=== PATIENT | female | born 1970 | race Caucasian/White ===

== ENCOUNTER 2020-06-15 10:37 | Emergency (ER) | payer OTHER, SELFPAY ==
[2020-06-15 10:42] VITALS: BP 203/98; PULSE 75; RESP 17; TEMP 36.1; O2SAT 98
--- NOTE | 2020-06-15 10:45 | ECG_ITS ---
Measurements Intervals [place] Rate: 78 P: 62 [place]: 138 QRS: 21 QRSD: 109 T: 24 QT: 377 QTc: 430 Interpretive Statements SINUS RHYTHM DELAYED PRECORDIAL R/S TRANSITION BASELINE ARTIFACT- I, II, III, AVR, AVL, AVF BORDERLINE ECG Electronically Signed On 06-15-2020 12:57:52 CDT by Bridger Longo D.O.
[2020-06-15 11:01] VITALS: BP 144/76; PULSE 71; RESP 13; O2SAT 99
--- NOTE | 2020-06-15 11:39 | ED.GENADULT ---
HPI - General Adult General Chief complaint: Recheck/Abnormal Lab/Rx Stated complaint: htn Time Seen by Provider: 06/15/20 10:41 Source: patient Mode of arrival: ambulatory Limitations: no limitations History of Present Illness HPI narrative: Patient is a 49-year-old female who presents from her gynecological visit where she was found to have an elevated blood pressure patient notes that she has typically had these in doctors offices or similar settings and has been monitoring at home every several days and that it typically runs in the 05/03/1937 systolic and 80 diastolic range. Patient has not seen primary care for this. Patient denies any symptoms or other concerns and presents in no distress and does not appear uncomfortable Related Data Home Medications Medication Instructions Recorded Confirmed ferrous sulfate mg 06/15/20 Allergies Allergy/AdvReac Type Severity Reaction Status Date / Time No Known Allergies Allergy Verified 06/15/20 10:45 Review of Systems Review of Systems: All systems reviewed & are unremarkable except as noted in HPI and below PMFSH Past Medical History Medical History (Updated 06/15/20 @ 11:43 by Ernst Leiva PA-C) Obese Family History Family History (Updated 11/28/13 @ 07:13 by DOCTOR UNKNOWN) Father Hypertension Social History Social History Smoking status: Never smoker Second hand tobacco smoke exposure: No Alcohol intake: never Exam Narrative: Exam Narrative: GENERAL: Well-appearing, well-nourished, and in no acute distress. HEAD: Normocephalic, atraumatic. EYES: PERRLA and EOMI. ENT: Nares clear, no rhinorrhea or epistaxis. Mucous membranes moist. CHEST: Clear to auscultation. No respiratory distress. No wheezes rales or rhonchi HEART: Regular rate and rhythm. No murmur heard. Normal peripheral pulses. EXTREMITIES: Normal range of motion. No edema. SKIN: Warm, dry, no rash. NEURO: No focal deficits. Alert and oriented x3. Cranial nerves II through XII grossly intact PSYCH: Normal mood and affect. Course Course Emergency Course: Patient in the room no distress aware of case findings treatment plan diagnosis felt appropriate for outpatient reevaluation will keep a diary of her blood pressures and follow with primary care for further evaluation. Patient has no symptoms ABCs and vital signs intact and stable. Patient provided with reasons to return and agrees to do so if symptoms worsen or concerns Vital Signs Vital signs: Vital Signs Temperature 96.9 F L 06/15/20 10:42 Pulse Rate 75 06/15/20 10:42 Respiratory Rate 17 06/15/20 10:42 Blood Pressure 203/98 H 06/15/20 10:42 Pulse Oximetry 98 06/15/20 10:42 Temperature 96.9 F L 06/15/20 10:42 Pulse Rate 71 06/15/20 11:01 Respiratory Rate 13 06/15/20 11:01 Blood Pressure 144/76 H 06/15/20 11:01 Pulse Oximetry 99 06/15/20 11:01 Medical Decision Making MDM Narrative Medical decision making narrative: Patient in the room no distress aware of case findings treatment plan diagnosis agreeing to follow-up as directed or to return if symptoms worsen or concerns hemodynamically stable asymptomatic Vital Signs Vital Signs: Vital Signs Temperature 96.9 F L 06/15/20 10:42 Pulse Rate 75 06/15/20 10:42 Respiratory Rate 17 06/15/20 10:42 Blood Pressure 203/98 H 06/15/20 10:42 Pulse Oximetry 98 06/15/20 10:42 Temperature 96.9 F L 06/15/20 10:42 Pulse Rate 71 06/15/20 11:01 Respiratory Rate 13 06/15/20 11:01 Blood Pressure 144/76 H 06/15/20 11:01 Pulse Oximetry 99 06/15/20 11:01 ECG Data EKG #1: ECG completion date: 06/15/20 ECG completion time: 10:47 EKG Interpretation: normal rate, sinus rhythm, non-specific ST changes and NL axis Discharge Plan Discharge Clinical Impression: Elevated blood pressure reading Patient Disposition: Home, Self-Care Condit
[2020-06-15 11:42] VITALS: BP 157/85; PULSE 63; RESP 15; O2SAT 98
== END 2020-06-15 11:50 | disposition home or self-care (01) ==
PROVIDERS: Emergency Provider Emergency Medicine; PCP Nurse Practitioner Family
DX: R03.0 Elevated blood-pressure reading, without diagnosis of hypertension (principal); E66.9 Obesity, unspecified; Z68.41 Body mass index [BMI] 40.0-44.9, adult; R94.31 Abnormal electrocardiogram [ECG] [EKG]
CPT/HCPCS: 93005; 99283

== ENCOUNTER 2020-10-17 16:11 | Emergency (ER) | payer OTHER, SELFPAY ==
[2020-10-17] VITALS (26 sets, daily range): BP systolic 122–178; BP diastolic 69–95; PULSE 69–98; RESP 12–26; TEMP 37.1–37.3; O2SAT 93–97
--- NOTE | ~2020-10-17 | XR_ITS ---
EXAMINATION: XR chest 1V portable DATE: 10/17/2020 17:35 INDICATION: Hypoxemia. Shortness of breath. COVID positive. TECHNIQUE: frontal view of the chest was obtained. COMPARISON: None FINDINGS: Patchy airspace opacities in the bilateral mid and lower lung zones. No pulmonary edema, pleural effu marla or pneumothorax. The cardiomediastinal silhouette is within normal limits for AP technique. IMPRESSION: 1. Patchy airspace opacities in the bilateral mid and lower lung zones consistent with pneumonia. Reviewed, dictated and finalized at location A. IMPRESSION: 1. Patchy airspace opacities in the bilateral mid and lower lung zones consiste nt with pneumonia.
--- NOTE | ~2020-10-17 | CT_ITS ---
EXAMINATION: CTA chest PE abdomen pel DATE: 10/17/2020 19:25 INDICATION: Shortness of breath. Generalized abdominal pain. TECHNIQUE: Computed tomography (CT) pulmonary angiogram of the chest was performed with 100 mL Omnipa que-350 intravenous contrast. Additional 3D reconstructions utilizing coronal maximum intensity proje ction (MIP) were performed. CT of the abdomen and pelvis was performed with intravenous contrast util izing the same contrast bolus following a short delay. Automated exposure control and iterative recon struction technique were employed. The dose-length product was 1806.01 mGy-cm. COMPARISON: None FINDINGS: Chest: Excellent contrast opacification of the pulmonary arteries. There is mild streak artifact from dense contrast in the superior vena cava and right atrium. Normal scattered respiratory motion artifact whi ch does not significantly limit evaluation. No pulmonary embolism. Patchy bilateral groundglass opaci ties throughout both lungs with peripheral predominance but sparing the subpleural lung most consiste nt with COVID pneumonia. No pleural effusion. Calcified right infrahilar lymph nodes consistent with old granulomatous disease. Heart size is normal. Minimal pericardial effusion. Thoracic aorta is norm al in caliber with no dissection. No pathologically enlarged thoracic lymphadenopathy. Mild thoracic spondylosis with chronic appearing mild anterior wedging at T12. Abdomen/pelvis: Liver, gallbladder, spleen, pancreas, bilateral adrenal glands and kidneys are normal. There is mild colonic diverticulosis with a sigmoid predominance. There is no adjacent inflammatory change to sugg est diverticulitis. Small bowel and appendix are normal. Decompressed bladder is normal. Likely tubal ligation clips at both the left and right sides of the fundus of the otherwise normal-appearing ante verted uterus. Bilateral ovarian cysts measuring up to 3.9 cm on the right and 2.2 cm on the left. No free intraperitoneal gas or fluid. No pathologically enlarged abdominal or pelvic lymphadenopathy. M inimal lumbar spondylosis. IMPRESSION: 1. No pulmonary embolism. 2. Peripheral predominant bilateral patchy lung disease most consistent with COVID pneumonia. 3. No acute intra-abdominal/pelvic process. Reviewed, dictated and finalized at location A. IMPRESSION: 1. No pulmonary embolism. 2. Peripheral predominant bilateral patchy lung disease most consistent with CO VID pneumonia. 3. No acute intra-abdominal/pelvic process.
--- NOTE | 2020-10-17 16:25 | ECG_ITS ---
Measurements Intervals [place] Rate: 84 P: 63 DC: 155 QRS: 12 QRSD: 104 T: 21 QT: 371 QTc: 439 Interpretive Statements SINUS RHYTHM NONSPECIFIC T-WAVE ABNORMALITY- ANT/INF LEADS BASELINE ARTIFACT- II, III, AVL, AVF BORDERLINE ECG Electronically Signed On 10-18-2020 7:18:20 CDT by Bridger Longo D.O.
[2020-10-17 17:44] LABS: Basophils Percent Auto 0.2 % (0.2-1.2); Hematocrit 37.8 % (37.0-47.0); Hemoglobin 11.9 g/dL (12.0-15.0); Immature Granulocyte Absolute 0.02 K/mm3 (0.00-0.031); Immature Granulocyte Percent A 0.5 % (0-0.5); Lymphocytes Absolute Auto 0.69 K/mm3 (0.9-3.2); Lymphocytes Percent Auto 16.4 % (18.3-44.2); Mean Corpuscular HGB Conc 31.5 g/dl (32-36); Mean Corpuscular Hemoglobin 27.4 pg (26-34); Mean Corpuscular Volume 87.1 fl (80-100); Mean Platelet Volume 10.3 fl (7.4-10.4); Monocytes Absolute Auto 0.4 K/mm3 (0.1-0.6); Monocytes Percent Auto 8.5 % (2.6-8.5); Neutrophils Absolute Auto 3.1 K/mm3 (1.3-6.7); Neutrophils Percent Auto 74.4 % (45.5-73.1); Platelet Count Result 121 k/mm3 (150-375); Red Blood Count 4.34 M/mm3 (4.2-5.4); Red Cell Distribution Width 13.4 % (11.5-14.5); White Blood Count 4.2 K/mm3 (4.5-10.0)
--- NOTE | 2020-10-17 17:51 | ED.GENADULT ---
HPI - General Adult General Chief complaint: Shortness of Breath/Dyspnea Stated complaint: COVID +, SOB Time Seen by Provider: 10/17/20 16:26 Source: patient Mode of arrival: ambulatory Limitations: no limitations History of Present Illness HPI narrative: Patient presents for evaluation of symptoms that she attributes to Covid. She states that she had a Covid test on 10/15/2020 that resulted on 10/16/2020 is positive. She initially experienced some sinus symptoms on Monday of this week. She then experienced fever, body aches, fatigue, decreased appetite, productive cough of green sputum, shortness of breath and nausea the following day. Her two sons live with her, one of which was admitted here for several days recently for COVID. She states her son's symptoms are improving. She came to the emergency department today after she checked her pulse oximetry at home and had a reading of 92% on RA. No personal or family hx of DVT, PE. She does not smoke. No leg swelling. Not on exogenous estrogen. Related Data Home Medications Medication Instructions Recorded Confirmed ferrous sulfate mg 06/15/20 lisinopril 10/17/20 norethindrone (contraceptive) mg 10/17/20 [Incassia] Allergies Allergy/AdvReac Type Severity Reaction Status Date / Time bupropion AdvReac Loss of Verified 10/17/20 16:23 Consciousness Review of Systems Review of Systems: Narrative: CONSTITUTIONAL: Reports fever and fatigue. Denies chills and diaphoresis EYES: Denies visual changes, redness, or discharge. ENT: Reports sinus congestion and drainage. Denies otalgia CARDIOVASCULAR: Denies chest pain, palpitations, or edema. RESPIRATORY: Reports productive cough and shortness of breath GASTROINTESTINAL: Reports nausea without vomiting GENITOURINARY: Denies dysuria or hematuria. SKIN: Denies rash or itching. MUSCULOSKELETAL: Reports generalized body aches NEUROLOGIC: Reports headache. Denies numbness, dizziness, or weakness. PSYCHIATRIC: Denies anxiety or depression. [facility] Past Medical History Medical History (Updated 10/17/20 @ 20:05 by Jon Chopra, [facility], ) Hypertension Obese Surgical History Surgical History No pertinent past surgical history Family History Family History (Reviewed 10/17/20 @ 17:57 by Jon Chopra, [facility], ) Father Hypertension Social History Social History Smoking status: Never smoker Second hand tobacco smoke exposure: No Alcohol intake: never Gender identity (if verbalized by the patient): Female Exam Narrative: Exam Narrative: GENERAL: Well-appearing, well-nourished, and in no acute distress. HEAD: Normocephalic, atraumatic. EYES: PERRLA and EOMI. ENT: Nares clear, no rhinorrhea or epistaxis. Mucous membranes moist. Oropharynx without tonsillar hypertrophy exudate or other lesions. Bilateral TMs pearly north nonbulging NECK: Supple. No adenopathy or masses. No carotid bruits or JVD CHEST: Clear to auscultation. No respiratory distress. No wheezes rales or rhonchi HEART: Regular rate and rhythm. No murmur heard. Normal peripheral pulses. ABDOMEN: Soft, nontender, nondistended, normal active bowel sounds. EXTREMITIES: Normal range of motion. No edema. SKIN: Warm, dry, no rash. NEURO: No focal deficits. Alert and oriented x3. PSYCH: Normal mood and affect. Course Course Emergency Course: This is a 50-year-old female who presented with known history of Covid diagnosed on 10/16/2020. She reported borderline O2 saturations but on my initial evaluation her saturations were normal. Given her diagnosis of Covid, I did screen her for PE. Her D-dimer is slightly elevated but CTA of the chest with no apparent PE. She does have evidence of pneumonia on both chest x-ray and CTA. This is likely a viral pneumonia however she could have a superimposed bacterial process. Therefo
[2020-10-17 17:55] LABS: Alanine Aminotransferase 61 U/L (4-35); Albumin Level 4.2 g/dL (3.5-5.1); Alkaline Phosphatase 69 U/L (38-126); Anion Gap 10 mmol/L (8-16); Aspartate Amino Transferase 65 U/L (14-36); Bilirubin,Total 0.5 mg/dL (0.2-1.3); Blood Urea Nitrogen 8 mg/dL (7-17); Calcium 8.8 mg/dL (8.4-10.2); Carbon Dioxide 23 mmol/L (22-30); Chloride 104 mmol/L (98-107); Estimated CRCL calculation 107 ml/min; Estimated Glomerular Filt Rate > 60; Glucose 97 mg/dL (65-110); Potassium 3.2 mmol/L (3.4-5.0); Sodium 137 mmol/L (137-145)
[2020-10-17 18:05] LABS: Troponin I < 0.012 ng/mL (0.000-0.034)
[2020-10-17 18:06] LABS: Troponin I < 0.012 ng/mL (0.000-0.034)
[2020-10-17 18:10] LABS: INR 0.9
[2020-10-17 18:11] LABS: Partial Thromboplastin Time 40.9 SECONDS (22.3-36.8)
[2020-10-17] MEDS: POTASSIUM CHLORIDE 20 MEQ TABLET 40 MEQ PO (20:52)
== END 2020-10-17 21:10 | disposition home or self-care (01) ==
PROVIDERS: Emergency Provider Nurse Practitioner; PCP Nurse Practitioner Family
DX: U07.1 COVID-19 (principal); J12.82 Pneumonia due to coronavirus disease 2019; E87.6 Hypokalemia; R94.31 Abnormal electrocardiogram [ECG] [EKG]
CPT/HCPCS: 36415; 71045; 71275; 74177; 80053; 81025; 84484; 85025; 85380; 85610; 85730; 93005; 99284; A9270; Q9967

== ENCOUNTER 2020-11-05 08:50 | Outpatient (CLI) | payer OTHER, SELFPAY ==
--- NOTE | ~2020-11-05 | MM_ITS ---
EXAMINATION: MM screening andrea BI w veronika HISTORY: Screening TECHNIQUE: Craniocaudal and mediolateral oblique 3-D tomosynthesis images were obtained and synthetic 2-D images were generated. CAD analysis was submitted and interpreted. COMPARISON: Comparison to multiple prior studies sequentially, with oldest reviewed study dated 11/27. BREAST PARENCHYMAL COMPOSITION: Breast composed of scattered areas of fibroglandular density. FINDINGS: There is focal asymmetry in the upper inner quadrant of the right breast. The left breast i s stable without evidence for malignancy. IMPRESSION: 1. Focal right breast asymmetry. 2. Additional mammographic views and possible breast ultrasound are recommended. BI-RADS Category 0: Incomplete: Needs additional imaging evaluation. Reviewed, dictated and finalized at location A. IMPRESSION: 1. Focal right breast asymmetry. 2. Additional mammographic views and possible breast ultrasound are recommended . BI-RADS Category 0: Incomplete: Needs additional imaging evaluation.
== END 2020-11-05 08:51 | disposition home or self-care (01) ==
LOC: ANHIMG 08:52
PROVIDERS: PCP Nurse Practitioner Family; Visit Provider Nurse Practitioner Adult Health
DX: Z12.31 Encounter for screening mammogram for malignant neoplasm of breast (principal); R92.8 Other abnormal and inconclusive findings on diagnostic imaging of breast
CPT/HCPCS: 77063; 77067

== ENCOUNTER 2020-12-01 11:57 | Outpatient (CLI) | payer OTHER, SELFPAY ==
--- NOTE | ~2020-12-01 | MMUS_ITS ---
EXAMINATION: MM diagnostic andrea RT w veronika, US breast RT complete HISTORY: Follow-up breast asymmetries TECHNIQUE: Additional 3-D tomosynthesis images of the right breast were performed and synthetic 2-D i mages were generated. CAD analysis was submitted and interpreted. High resolution complete right junior st ultrasound was performed. COMPARISON: Comparison to multiple prior studies sequentially, with oldest reviewed study dated 11/27. BREAST PARENCHYMAL COMPOSITION: The breasts are heterogenously dense, which may obscure small masses. FINDINGS: MAMMOGRAPHIC FINDINGS: There are scattered breast asymmetries in the right breast. There are subtle nodules centered in the upper outer quadrant of the right breast obscured by fibroglandular tissue. ULTRASOUND: Right breast ultrasound: At 12:00, 1 cm from the nipple there is an 8 mm cyst. At 1:00, 2 cm from the nipple, there is a cluster of microcysts measuring up to 1.8 cm. At 4:00, 2 cm from the nipple there is a cluster of microcysts measuring 1.6 cm. At 6:00, 2 cm from the nipple there is a 7 mm cyst. At 9:00, 1 cm from the nipple there is a 1 cm cyst. No suspicious masses to suggest malignancy. IMPRESSION: 1. No evidence for malignancy in the right breast. Benign findings. 2. Routine yearly screening mammogram and regular clinical breast examination are recommended. BI-RADS Category 2: Benign finding(s). Reviewed, dictated and finalized at location A. IMPRESSION: 1. No evidence for malignancy in the right breast. Benign findings. 2. Routine yearly screening mammogram and regular clinical breast examination a re recommended. BI-RADS Category 2: Benign finding(s).
== END 2020-12-01 11:58 | disposition home or self-care (01) ==
LOC: ANHIMG 12:05
PROVIDERS: PCP Nurse Practitioner Adult Health; Visit Provider Nurse Practitioner Adult Health
DX: R92.8 Other abnormal and inconclusive findings on diagnostic imaging of breast (principal)
CPT/HCPCS: 76641; 77061; 77065; G0279